=== PATIENT | female | born 1955 | race Caucasian/White ===

== ENCOUNTER 2016-08-17 10:31 | Emergency (ER) | payer OTHER ==
[~2016-08-17] VITALS: Ht 165.1 cm; Wt 56.7 kg
[2016-08-17 10:40] VITALS: BP 115/68
== END 2016-08-17 10:45 | disposition home or self-care (01) ==
LOC: ER 10:33
DX: L03.012 Cellulitis of left finger (principal)
CPT/HCPCS: A4606; Z7610